=== PATIENT | female | born 1990 | race Caucasian/White ===

== ENCOUNTER 2018-01-23 13:44 | Outpatient (CLI) | payer MEDICAID ==
[~2018-01-23] VITALS: Ht 157.5 cm; Wt 81.8 kg
[~2018-01-23 13:44] MED LIST: ACET325T14 PO; DICL500C PO; IBUP200T49 PO; OXYC-302 PO; PREN1TAB60 PO
[2018-01-23 14:06] VITALS: BP 115/70
[2018-01-23 14:36] LABS: AMNISURE NEGATIVE (NEGATIVE)
== END 2018-01-23 16:18 | disposition home or self-care (01) ==
LOC: LDOP 13:44
PROVIDERS: ATTEND Obstetrics & Gynecology
DX: O42.913 Preterm premature rupture of membranes, unspecified as to length of time between rupture and onset of labor, third trimester (principal); Z3A.30 30 weeks gestation of pregnancy
CPT/HCPCS: 59025; 76819; 84112; 99211; G0463

== ENCOUNTER 2018-03-20 21:20 | Inpatient (IN) | payer MEDICAID ==
[~2018-03-20] VITALS: Ht 157.5 cm; Wt 82.0 kg
[2018-03-20] MEDS ORDERED: LACTATED RINGERS 1,000 ML IV SCH ×3 (21:40→22:30)
[2018-03-20] MEDS ORDERED: OXYTOCIN 30U/ 0.9% NaCL 500ML 500 ML IV SCH (22:11)
[2018-03-20] MEDS ORDERED: NEWBORN KIT ONE (22:14)
[2018-03-20] MEDS: OXYTOCIN 30U/ 0.9% NaCL 500ML 500 ML IV SCH (22:18)
[2018-03-20] MEDS: LACTATED RINGERS 1,000 ML IV SCH ×2 (22:18)
[2018-03-20 22:29] LABS: BASOPHILS # (AUTO) 0.06 x10^3/uL (0-0.1); BASOPHILS % (AUTO) 1 % (0-1); EOSINOPHILS # (AUTO) 0.14 x10^3/uL (0-0.4); EOSINOPHILS % (AUTO) 2 % (1-7); LYMPHOCYTES # (AUTO) 1.33 x10^3/uL (1-3.4); LYMPHOCYTES % (AUTO) 15 % (22-44); MD NO; MEAN CORPUSCULAR HEMOGLOBIN 28.2 pg (27.0-34.8); MEAN CORPUSCULAR HGB CONC 33.8 g/dL (32.4-35.8); MEAN CORPUSCULAR VOLUME 83.6 fL (80-100); MEAN PLATELET VOLUME 10.1 fL (7.4-10.4); MONOCYTES # (AUTO) 0.56 x10^3/uL (0.2-0.8); MONOCYTES % (AUTO) 6 % (2-9); NEUTROPHILS % (AUTO) 76 % (42-75); PLATELET COUNT 210 x10^3/uL (130-400); RED BLOOD COUNT 3.79 x10^6/uL (3.82-5.3); RED CELL DISTRIBUTION WIDTH 13.9 % (9.6-15.2)
[2018-03-20] MEDS ORDERED: OXYcodone 5 MG/5 ML ORAL.SOL UDC PO PRN (22:30)
[2018-03-20] MEDS ORDERED: SODIUM CITRATE/CITRIC ACID 30 ML UDC PO ONE (22:30)
[2018-03-20] MEDS ORDERED: ONDANSETRON ODT 8 MG PO PRN (22:30)
[2018-03-20] MEDS ORDERED: DIPH,PERTUSS(ACELL),TET VAC/PF NC IM-VACC PRN (22:30)
[2018-03-20] MEDS ORDERED: MORPHINE SULFATE 4 MG/ML, 1ML IVPush PRN (22:30)
[2018-03-20] MEDS ORDERED: MISOPROSTOL 200 MCG TABLET PR PRN (22:30)
[2018-03-20] MEDS ORDERED: ACETAMINOPHEN 325 MG TABLET PO PRN ×2 (22:30)
[2018-03-20] MEDS ORDERED: METOCLOPRAMIDE 5 MG/ML, 2ML IV ONE (22:30)
[2018-03-20] MEDS ORDERED: FENTANYL PF 100 MCG/2ML IV PRN (22:30)
[2018-03-20] MEDS ORDERED: morphine SULFATE 10 MG/ML, 1ML IVPush PRN ×2 (22:30)
[2018-03-20] MEDS ORDERED: MEPERIDINE/PF 25MG/0.5ML IVPush PRN (22:30)
[2018-03-20] MEDS ORDERED: MEASLES,MUMPS&RUBELLA VACC/PF 0.5 ML SQ-VACC PRN (22:30)
[2018-03-20] MEDS ORDERED: ONDANSETRON 2MG/ML, 2ML IV PRN (22:30)
[2018-03-20] MEDS ORDERED: EPHEDRINE 50 MG/ML, 1ML IVPush PRN (22:30)
[2018-03-20] MEDS ORDERED: CALCIUM CARBONATE 500 MG TAB.CHEW PO PRN (22:30)
[2018-03-20] MEDS ORDERED: PROMETHAZINE 12.5 MG SUPP PR PRN (22:30)
[2018-03-20] MEDS ORDERED: LACTATED RINGERS 1,000 ML IVBOLUS ONE (22:30)
[2018-03-20] MEDS ORDERED: METOCLOPRAMIDE 5 MG/ML, 2ML ONE (22:39)
[2018-03-20] MEDS ORDERED: SODIUM CITRATE/CITRIC ACID 30 ML UDC ONE (22:39)
[2018-03-20] MEDS ORDERED: EPINEPHRINE 1 MG/ML, 1ML ONE (23:24)
[2018-03-20] MEDS ORDERED: EPHEDRINE 50 MG/ML, 1ML ONE (23:24)
[2018-03-20] MEDS ORDERED: OXYTOCIN 10 UNITS/ML, 1ML ONE ×2 (23:24)
[2018-03-20] MEDS ORDERED: CEFAZOLIN 1,000 MG ONE (23:24)
[2018-03-20] MEDS ORDERED: FENTANYL PF 100 MCG/2ML ONE ×2 (23:30→23:32)
[2018-03-21] VITALS (7 sets, daily range): BP systolic 90–122; BP diastolic 47–77
[2018-03-21] MEDS ORDERED: OXYTOCIN 30U/ 0.9% NaCL 500ML 500 ML ONE (00:28)
[2018-03-21] MEDS ORDERED: morphine SULFATE 10 MG/ML, 1ML ONE (00:47)
[2018-03-21] MEDS: OXYcodone/APAP 5/325MG TABLET PO PRN ×5 (03:41→21:42)
[2018-03-21] MEDS: KETOROLAC 30 MG/1 ML IV SCH ×4 (04:30→17:58)
[2018-03-21] MEDS: LACTATED RINGERS 1,000 ML IV SCH ×4 (06:18→18:18)
[2018-03-21] MEDS: DOCUSATE 100 MG CAPSULE PO PRN ×2 (07:36→21:42)
[2018-03-21 08:18] LABS: MEAN CORPUSCULAR HGB CONC 33.6 g/dL (32.4-35.8); MEAN CORPUSCULAR VOLUME 83.4 fL (80-100); MEAN PLATELET VOLUME 9.8 fL (7.4-10.4); PLATELET COUNT 167 x10^3/uL (130-400); RED BLOOD COUNT 3.31 x10^6/uL (3.82-5.3); RED CELL DISTRIBUTION WIDTH 14.1 % (9.6-15.2)
[2018-03-21] MEDS: OXYTOCIN 30U/ 0.9% NaCL 500ML 500 ML IV SCH ×2 (08:18→18:18)
[2018-03-21 08:34] LABS: BASOPHILS # (AUTO) 0.01 x10^3/uL (0-0.1); BASOPHILS % (AUTO) 0 % (0-1); EOSINOPHILS # (AUTO) 0.03 x10^3/uL (0-0.4); EOSINOPHILS % (AUTO) 0 % (1-7); LYMPHOCYTES # (AUTO) 1.08 x10^3/uL (1-3.4); LYMPHOCYTES % (AUTO) 10 % (22-44); MD SCAN; MONOCYTES # (AUTO) 0.47 x10^3/uL (0.2-0.8); MONOCYTES % (AUTO) 4 % (2-9); NEUTROPHILS # (AUTO) 9.46 x10^3/uL (1.8-6.8); NEUTROPHILS % (AUTO) 86 % (42-75)
[2018-03-21] MEDS: PRENATAL VIT/IRON/FA 1 EACH TABLET PO SCH (09:00)
[2018-03-21] MEDS ORDERED: ONDANSETRON 4 MG TABLET ONE (10:21)
[2018-03-21] MEDS ORDERED: ONDANSETRON ODT 4 MG PO PRN (10:30)
[2018-03-21] MEDS ORDERED: SIMETHICONE 80 MG CHEW TAB ONE (16:29)
[2018-03-21] MEDS: SIMETHICONE 80 MG CHEW TAB PO PRN ×2 (16:33→21:42)
[2018-03-21] MEDS: IBUPROFEN 600 MG TABLET PO PRN ×2 (17:52→23:29)
[2018-03-22] MEDS: IBUPROFEN 600 MG TABLET PO PRN ×3 (05:43→20:06)
[2018-03-22] MEDS: OXYcodone/APAP 5/325MG TABLET PO PRN ×4 (05:43→20:07)
[2018-03-22 07:19] VITALS: BP 100/54
[2018-03-22] MEDS: PRENATAL VIT/IRON/FA 1 EACH TABLET PO SCH (07:31)
[2018-03-22] MEDS: DOCUSATE 100 MG CAPSULE PO PRN ×2 (07:32→20:06)
[2018-03-22] MEDS: SIMETHICONE 80 MG CHEW TAB PO PRN (16:06)
[2018-03-22 19:15] VITALS: BP 98/61
[2018-03-23] MEDS: OXYcodone/APAP 5/325MG TABLET PO PRN ×3 (03:29→13:28)
[2018-03-23] MEDS: IBUPROFEN 600 MG TABLET PO PRN ×2 (03:29→13:28)
[2018-03-23] MEDS: SIMETHICONE 80 MG CHEW TAB PO PRN (03:29)
[2018-03-23 07:35] VITALS: BP 99/61
[2018-03-23] MEDS: DOCUSATE 100 MG CAPSULE PO PRN (07:43)
[2018-03-23] MEDS: PRENATAL VIT/IRON/FA 1 EACH TABLET PO SCH (07:43)
== END 2018-03-23 13:49 | disposition home or self-care (01) | DRG 766 ==
LOC: LDOP 21:20 → LDIP 22:13 → 2NW 03-21 01:41
PROVIDERS: ADMIT Obstetrics & Gynecology; ATTEND Obstetrics & Gynecology
PROC: 10D00Z1 Extraction of Products of Conception, Low, Open Approach (ICD-10-PCS; principal; 2018-03-20)
PROC: 0UB70ZZ Excision of Bilateral Fallopian Tubes, Open Approach (ICD-10-PCS; 2018-03-20)
PROC: 0DNW0ZZ Release Peritoneum, Open Approach (ICD-10-PCS; 2018-03-20)
PROC: 3E0234Z Introduction of Serum, Toxoid and Vaccine into Muscle, Percutaneous Approach (ICD-10-PCS; 2018-03-20)
DX: O34.211 Maternal care for low transverse scar from previous cesarean delivery (principal); N73.6 Female pelvic peritoneal adhesions (postinfective); O99.89 Other specified diseases and conditions complicating pregnancy, childbirth and the puerperium; Z37.0 Single live birth; Z30.2 Encounter for sterilization; Z3A.38 38 weeks gestation of pregnancy; O09.43 Supervision of pregnancy with grand multiparity, third trimester; Z23 Encounter for immunization
CPT/HCPCS: 36415; 82803; 85025; 88302; J0171; J0690; J1885; J3010; Q0162; C1765; J2270; J2590; J2765; J7120